=== PATIENT | female | born 2005 | race Caucasian/White ===

== ENCOUNTER 2024-01-14 01:40 | Outpatient (CLI) | payer MEDICAID ==
[~2024-01-14] VITALS: Ht 162.6 cm; Wt 66.1 kg
[~2024-01-14 01:40] MED LIST: PRENATAL TABLET PO
[2024-01-14 02:30] VITALS: BP 93/57; PULSE 110; TEMP 98.3
[2024-01-14] MEDS ORDERED: LR 1,000 ML IV PRN (02:30)
--- NOTE | 2024-01-14 02:30 | NUR ---
0150: Pt arrives ambulatory to unit, accompanied by her mother. Pt instructed to change into a gown. 0156: RN enters room and places monitors on pt. Health and history obtained. Pt reports she began having ctx around 2300 yesterday, they were about 5 minutes apart, denies any LOF, vaginal bleeding and reports good movement. Pt does inform this RN that she did have intercourse at approx [id number] yesterday and then the ctx started after this. Pt denies any other complaints. 0203: SVE /-2; I inform pt that I will monitor her for the next hour and monitor the ctx that she is having and with her permission recheck her cervix for any change. Pt verbalizes understanding.
[2024-01-14 03:00] VITALS: BP 97/62; PULSE 89
[2024-01-14 03:30] VITALS: BP 98/58; PULSE 92
== END 2024-01-14 03:35 | disposition home or self-care (01) ==
LOC: LDRO 01:40 → LDR 01:55 → LDRO 03:35
DX: O26.893 Other specified pregnancy related conditions, third trimester (principal); E75.5 Other lipid storage disorders; Z3A.38 38 weeks gestation of pregnancy
CPT/HCPCS: OP

== ENCOUNTER 2024-01-23 19:55 | Inpatient (IN) | payer MEDICAID ==
[2024-01-23] VITALS (12 sets, daily range): BP systolic 91–112; BP diastolic 54–73; PULSE 80–115; TEMP 98.1–98.2
[~2024-01-23] VITALS: Ht 162.6 cm; Wt 68.6 kg
--- NOTE | 2024-01-23 20:00 | NUR ---
PT AMBULATORY TO LR 4. CHANGED INTO CLEAN GOWN. PT DENIES LOF/VB. GOOD MOVEMENT. STATES SHE WAS HER EARLIER TODAY AND DIDN'T WANT TO COME BACK FOR FEAR OF BEING SENT HOME. PT COMPLAINT OF CONTRACTIONS THAT ARE 5 MINUTES APART AND PAINFUL. PT STATES SHE TOOK TYLENOL AND BENEDRYL FROM [facility] OF HER DISCHARGE EARLIER, AND IT DIDN'T HELP, SHE STAYED AWAKE THROUGH THE CONTRACTIONS. PT PLACED ON EFM AND TOCO. THE HEARTRATE IS TACHYCARDIC AND WITHIN THE FIRST 15 MINUTES ON THE MONITOR HAD 2 LATE DECELERATIONS. CONTACTED PROVIDER FOR IMMEDIATE UPDATE. ADMISSION ORDERS RCVD. SEE PHYSICIAN NOTIFICATION. PT ADMITTED, ADMISSION COMPLETED, 18G IV STARTED IN THE LEFT FOREARM, IVF INFUSING BOLUS. PT DOES WANT AN EPIDURAL SOON SHE CAN HAVE IT. NO OTHER CONCERNS REGARDING THE PATIENT AT THIS TIME.
[2024-01-23] MEDS ORDERED: ceFAZolin 2 G in Water For Injection,Sterile 20 ML IV ONE (20:45)
[2024-01-23] MEDS ORDERED: LR & Oxytocin 500 ML IV SCH (20:45)
[2024-01-23] MEDS ORDERED: LR 1,000 ML IV SCH (20:45)
[2024-01-23 21:10] LABS: BASO % 0.2 % (0.0-2.0); EOS # 0.1 K/mm3 (0.0-0.7); GRAN # 10.7 K/mm3 (1.4-6.5); GRAN % 76.2 % (42.2-75.2); HEMOGLOBIN 10.8 g/dl (12.0-15.0); LYMPH # 1.8 K/mm3 (1.2-3.4); LYMPH % 12.5 % (20.0-51.0); MEAN CELL VOLUME 90 fl (80.0-95.0); MEAN CORPUSCULAR HEMOGLOBIN 30 pg (26-32); MEAN CORPUSCULAR HGB CONC 33 g/dl (33.0-37.0); MEAN PLATELET VOLUME 10.2 fl (7.4-10.4); MONO # 1.3 K/mm3 (0.1-0.6); MONO % 9.5 % (1.7-9.3); PLATELET COUNT 202 K/mm3 (130-400); REDCELL DISTRIBUTION WIDTH-CV 13.8 % (11.5-14.5)
[2024-01-23 21:12] LABS: HEMATOCRIT 32.5 % (35.0-45.0)
[2024-01-23] MEDS ORDERED: ROPivacaine PF 0.2% 200 ML IV ONE (21:16)
--- NOTE | 2024-01-23 21:31 | NUR ---
PT SITTING UP AT BEDSIDE, ALO MICHAEL IN ROOM FOR PLACEMENT OF EPIDURAL. PT VERBALIZED UNDERSTANDING AND AGREES TO CONTINUE. ALO AMEZCUA PREPS PATIENT AND BEGINS. 213: TEST DOSE ADMINISTERED PER ALO AMEZCUA. THE PATIENT TOLERATED THE PROCEDURE VERY WELL, DENIES ANY DISCOMFORT AFTER PROCEDURE. NO OTHER CONCERNS AT THIS TIME.
[2024-01-23] MEDS ORDERED: diphenhydrAMINE 25 MG CAP PO PRN (21:45)
[2024-01-23] MEDS ORDERED: ePHEDrine 50 MG/10 ML VIAL IV PRN (21:45)
[2024-01-23] MEDS ORDERED: diphenhydrAMINE 50 MG/ML 1 ML VIAL IV PRN (21:45)
[2024-01-23] MEDS ORDERED: Naloxone 0.4 MG/ML VIAL IV PRN (21:45)
[2024-01-23] MEDS ORDERED: Ondansetron 4 MG/2 ML VIAL IV PRN (21:45)
[2024-01-24] VITALS (52 sets, daily range): BP systolic 88–119; BP diastolic 47–68; PULSE 74–962; TEMP 98.3–99.1
[2024-01-24] MEDS ORDERED: ceFAZolin 1 G in Water For Injection,Sterile 10 ML IV SCH (04:31)
--- NOTE | 2024-01-24 06:20 | NUR ---
REPORT GIVEN TO STONEY HERBERT. TRANSFER OF CARE COMPLETE.
--- NOTE | 2024-01-24 09:35 | NUR ---
0935Patient calls rn to room and reports feeling increased pressure and leaking vaginal fluid. Small amount of clear fluid noted to pad. SVE AL/0. Gunjan care provided, pads changed, and pt repositioned. 0955Dr. Navstsaad on unit and updated on pt. 1003Dr. Goodpasture at bedside. AROM of forebag by provider. SVE by Dr. Mejia . Clear fluid noted. Pt repositioned. Resting with call light within reach.
[2024-01-24] MEDS ORDERED: Loratadine 10 MG TAB PO PRN (11:45)
[2024-01-24] MEDS ORDERED: Naloxone 0.4 MG/ML VIAL IV PRN (11:45)
[2024-01-24] MEDS ORDERED: Magnes Hydrox (MOM) 80 MG/ML 30 ML CUP PO PRN (11:45)
[2024-01-24] MEDS ORDERED: Witch Hazel 50% Pads Bulk TUB TP PRN (11:45)
[2024-01-24] MEDS ORDERED: Acetaminophen 500 MG TAB PO SCH (11:45)
[2024-01-24] MEDS ORDERED: Measles/Mumps/Rubella Virus Vaccine Live w Diluent 0.5 ML VIAL SQ SCH (11:45)
[2024-01-24] MEDS ORDERED: Ibuprofen 800 MG TAB PO SCH (11:45)
[2024-01-24] MEDS ORDERED: Phenylephrine/Mineral Oil/Petrolatum 57 GM TUBE RC PRN (11:45)
[2024-01-24] MEDS ORDERED: Mag/Al Hydrox/Simeth Susp 30 ML CUP PO PRN (11:45)
--- NOTE | 2024-01-24 14:10 | NUR ---
THIS RN RECEIVES REPORT FROM TEJINDER LUA. THIS RN ASSUMES CARE.
[2024-01-24] MEDS ORDERED: Sennosides/Docusate 8.6-50 MG TAB PO SCH (17:00)
[2024-01-24] MEDS ORDERED: traZODone 50 MG TAB PO PRN (21:00)
[2024-01-25] VITALS: BP 112/68; PULSE 70; TEMP 98.2
[2024-01-25 07:30] VITALS: BP 103/61; PULSE 96; TEMP 97.7
[2024-01-25] MEDS ORDERED: MOTRIN 800800 MG/TAB PO (08:12)
[2024-01-25] MEDS ORDERED: Acetaminophen 500 MG TAB PO SCH (11:30)
[2024-01-25 21:15] VITALS: BP 110/65; PULSE 80; TEMP 98.2
== END 2024-01-26 14:30 | disposition home or self-care (01) | DRG 806 ==
LOC: LDRO 19:55 → LDR 20:30 → OB 01-24 14:00
PROVIDERS: Obstetrics & Gynecology; ADMIT Obstetrics & Gynecology
PROC: 10E0XZZ Delivery of Products of Conception, External Approach (ICD-10-PCS; principal; 2024-01-24)
PROC: 0KQM0ZZ Repair Perineum Muscle, Open Approach (ICD-10-PCS; 2024-01-24)
PROC: 0UQKXZZ Repair Hymen, External Approach (ICD-10-PCS; 2024-01-24)
DX: O99.824 Streptococcus B carrier state complicating childbirth (principal); O98.32 Other infections with a predominantly sexual mode of transmission complicating childbirth; Z37.0 Single live birth; A60.09 Herpesviral infection of other urogenital tract; O70.1 Second degree perineal laceration during delivery; Z3A.39 39 weeks gestation of pregnancy
CPT/HCPCS: J0690; J2590; J2795; J7120